=== PATIENT | female | born 1980 | race Caucasian/White ===

== ENCOUNTER 2017-03-11 10:53 | Emergency (ER) | payer OTHER ==
[2017-03-11 11:19] VITALS: BP 109/64
[2017-03-11] MEDS ORDERED: Fluorescein Sodium TOPICAL* 1 MG TEST OPHTHALMIC ONE (12:00)
[2017-03-11] MEDS ORDERED: Tetracaine 0.5% OPTH.SOL 4 ML* 1 DROP BTL ONE (12:00)
[2017-03-11] MEDS ORDERED: Erythromycin OPTH OINT* APPLIC OINT RIGHT EYE ONE ×2 (12:29→12:30)
--- NOTE | 2017-03-11 12:30 | UC ---
rafat Zuleta Timothy, scribed for Uma Campbell MD on 03/11/17 at 1215 . Eye Complaint HPI - HPI Summary HPI Summary: Analisa Cagle is a 37 yo female presenting to [facility] accompanied by her with 8/10 burning, throbbing, aching right eye pain which she scratched this am by rubbing it. Pain increases with blinking. + clear discharge. No blurring or vision. + photophobia. No corrective lenses. . She notes that with pain she felt slightly lightheaded, which has resolved. No fb sesation. Pt is 9.5 weeks . Her MHx includes current , anemia, breast CA 2011. Pt medication list reviewed this visit. - History of Current Complaint Chief Complaint: UCEye Stated Complaint: EYE ISSUE Time Seen by Provider: 03/11/17 12:00 Hx Obtained From: Patient Hx Last Menstrual Period: 9.5 weeks ?: Yes Onset/Duration: Sudden Onset, Lasting Hours, Still Present Timing: Constant Severity Initially: Moderate Severity Currently: Moderate Pain Intensity: 8 Pain Scale Used: 0-10 Numeric Location of Injury: Conjunctiva Character: Sharp, Dull, Throbbing Aggravating Factor(s): Light, Blinking Associated Signs And Symptoms: Positive: Photophobia - Allergies/Home Medications Allergies/Adverse Reactions: Allergies Allergy/AdvReac Type Severity Reaction Status Date / Time Codeine Allergy N/V, Verified 09/02/16 14:58 TINGLING EXTREMITIES PMH/Surg Hx/FS Hx/Imm Hx Previously Healthy: Yes Cancer History: Breast Cancer - 2011 - Surgical History Surgical History: Yes Surgery Procedure, Year, and Place: sinus surg. 2007,BILATERAL MASTECTOMY,2015 UTERINE FIBROID REMOVAL - Family History Known Family History: Positive: Diabetes, Other - glaucoma - Social History Occupation: Employed Full-time Lives: With Family Alcohol Use: Occasionally Substance Use Type: None Smoking Status (MU): Never Smoked Tobacco Review of Systems Constitutional: Negative Skin: Negative Eyes: Drainage - clear tearing, Photophobia, Other - eye pain ENT: Negative Respiratory: Negative Cardiovascular: Negative Gastrointestinal: Negative Genitourinary: Negative Motor: Negative Neurovascular: Negative Musculoskeletal: Negative Neurological: Negative Psychological: Negative All Other Systems Reviewed And Are Negative: Yes Physical Exam Triage Information Reviewed: Yes Vital Signs: Initial Vital Signs Temp 97.6 F 03/11/17 11:15 Pulse 65 03/11/17 11:15 Resp 15 03/11/17 11:15 BP 109/64 03/11/17 11:15 Pulse Ox 100 03/11/17 11:15 Vital Signs Reviewed: Yes Eyes: Positive: Conjunctiva Inflamed, Discharge - clear tearing, Other: - Pain improved with tetracaine instilled RADHA, EOM intact mild photophobia no fb in everted upper and lower lid fluorescene - pt with uptake left eye at 7 o;clock small corneal abrasion Dental Exam: Normal Neck exam: Normal Neck: Positive: Supple, Nontender Respiratory Exam: Normal Respiratory: Positive: Chest non-tender, Lungs clear, Normal breath sounds, No respiratory distress, No accessory muscle use Cardiovascular: Positive: RRR, No Murmur, Pulses Normal Abdominal Exam: Normal Abdomen Description: Positive: Nontender, No Organomegaly, Soft Re-Evaluation - Re-Evaluation First Eval Re-Evaluation Time: 12:23 Change: Unchanged Comment: Reviewed of med safe in - will avoid Acular, polytrim and cipro. will use emycin ointment. will give first dose here because pt unsure regarding ointment. referral to ophto. return prn Eye Complaint Course/Dx - Course Course Of Treatment: Analisa Cagle is a 37 yo female presenting to [facility] with 8/ 10 burning, throbbing, aching right eye pain S/P rubbing it this morning, concerned for a scratch. She is 9.5 weeks . Pt medication list reviewed this visit. In the urgent care course she received tetracaine. Discussed risks of motrin drops with . After clinical examination she will be discharged home with appropriate instructions and follow up. - Differential Dx/Diagnosis Differential Diagnosis/HQI/PQRI: Corneal Abrasion Provider Diagnoses: corneal abrasion Discharge - Discharge Plan Condition: Stable Disposition: HOME Patient Education Materials: Corneal Abrasion (ED) Referrals: Rayshawn Elder MD [Primary Care Provider] - 2 Days Nasim Heath MD [Medical Doctor] - 2 Days Additional Instructions: - wear sunglasses - this will help with light sensitivity - Okay to take Tylenol every 6 hours for pain - Okay to apply cool cloth or pack to your eye for discomfort - Apply eye ointment 3 times a day fir a period of 5 days - Contact the eye doctor to schedule a follow-up appointment if your symptoms persist, increase, or you have any other questions or concerns The documentation as recorded by the rafat ferreira Timothy accurately reflects the service I personally performed and the decisions made by me, Uma Campbell MD.
== END 2017-03-11 12:49 | disposition home or self-care (01) ==
LOC: UCEAST 10:53
DX: O26.891 Other specified pregnancy related conditions, first trimester (principal); S05.01XA Injury of conjunctiva and corneal abrasion without foreign body, right eye, initial encounter; Z3A.09 9 weeks gestation of pregnancy; X58.XXXA Exposure to other specified factors, initial encounter; Y93.9 Activity, unspecified; Y92.9 Unspecified place or not applicable; Z85.3 Personal history of malignant neoplasm of breast; Z90.13 Acquired absence of bilateral breasts and nipples; Z88.5 Allergy status to narcotic agent
CPT/HCPCS: 99212; A9270-GY; G0463

== ENCOUNTER 2017-09-25 06:07 | Inpatient (IN) | payer OTHER ==
[~2017-09-25 06:07] MED LIST: Buffered Lidocaine 0.9% SYRIN* 5 ML/SYR SYRINGE INTRADERM ONE; Metoclopramide IV* 5 MG/ML 2 ML VIAL IV SLOW PU ONE; Ondansetron INJ* 2 MG/ML VIAL IV ONE; Sodium Citrate/Citric Acid* 15 ML UDC PO ONE
--- OUTSIDE RECORDS SUMMARY | 2017-09-25 06:12 | XMS REPORT ---
:1980 External Reference #:[id number] Author Organization [facility] Address [address] [place] [address] Phone [phone] Care Team Providers Name Role Phone All Elder MD Primary Care Physician Unavailable Payers Type Date Identification Numbers Payment Provider Subscriber Commercial Effective: Policy Number: [facility] Cisco Gonzalez 2012 [id number] (alpha) Group Number: [id number] [address] PayID: [id number] [place] [address] Problems Date Description Provider Status Onset: 08/03/2013 Uterine leiomyoma TOBI Snyder Active Family History Date Family Member(s) Problem(s) Comments Father Diabetes Mother A&W Siblings 1 Siblings Youngest of two children First Sister A&W Paternal Grandfather due to Cancer () Paternal Grandmother due to Breast Cancer () Maternal Grandfather due to Cancer () Maternal Grandmother due to Ovarian Cancer () Social History Type Date Description Comments Education Highest Level Completed, Master's Degree Marital Status Lives With Spouse Sleep Typically sleeps 6 hours a night Pets 1 dog Occupation Teacher Cigarette Use Never Smoked Cigarettes ETOH Use Alcohol Use Prior To approx 2-3xwk Recreational Drug Use Denies Drug Use Smoking Patient has never smoked Daily Caffeine Consumes on average 1 cup of coffee per day Exercise Type/Frequency Exercises regularly Seat Belt/Car Seat Always uses seat belt Currently Active Patient is currently sexually active Contraceptive Methods None STD's Genital Warts Allergies, Adverse Reactions, Alerts Date Description Reaction Status Severity Comments 03/10/2017 Codeine Nausea and Vomiting, numbness active 03/10/2017 Paba Derivatives active 07/12/2013 NKDA inactive Medications Medication Date Status Form Strength Qnty SIG Indications Ordering Provider Flonase Active Unknown 000 Active Unknown Vitamins 000 Calcium 1000 + Active Unknown D 000 Ferrous Active Unknown Gluconate 000 Flagyl Hx Tablets 500mg 14tabs 1 by mouth Sandra 017 - twice a day Jump, x7 DO Not ANP-C 017 Start This Medication until March 28. Tamoxifen Hx Unknown Citrate 000 - 017 Xyzal Hx Unknown 000 - 017 Glucosamine Hx Unknown 000 - 017 Medications Administered in Office Medication Date Status Form Strength Qnty SIG Indications Ordering Provider PT SCRN Tbco Administered Injection Atiya Id as Non User 018 MD Elijah Immunizations CPT Code Status Date Vaccine Lot # [id number] Given 05/14/2017 Influenza Vaccine Quadrivalent Preser/Antibiotic [id number] Free Im Use Vital Signs Date Vital Result Comment 09/16/2017 BP Systolic 112 mmHg BP Diastolic 72 mmHg Height 65 inches 5'5" Weight 183.00 lb BMI (Body Mass Index) 30.4 kg/m2 Last Menstrual Period [id number] 1 Parity 0 03/10/2017 BP Systolic 120 mmHg BP Diastolic 72 mmHg Height 65 inches 5'5" Weight 162.00 lb BMI (Body Mass Index) 27.0 kg/m2 Last Menstrual Period 0741852 1 Parity 0 07/12/2013 BP Systolic 110 mmHg BP Diastolic 74 mmHg Height 65.25 inches 5'5.25" Weight 148.00 lb BMI (Body Mass Index) 24.4 kg/m2 Last Menstrual Period [id number] 0 Results Test Date Test Result H/L Range Note Laboratory test 09/07/2017 Genital For GRP B SEE RESULT BELOW 1 finding Strep Only Laboratory test 07/02/2017 Glucose 1 HR Post 117 mg/dL 70-160 2 finding Prandial CBC With No Diff 07/02/2017 White Blood Count 7.3 10^3/uL 3.5-10.8 Red Blood Count 3.87 10^6/uL Low 4.0-5.4 Hemoglobin 11.6 g/dL Low 12.0-16.0 Hematocrit 34 % Low 35-47 Mean Corpuscular Volume 88 fL 80-97 Mean Corpuscular Hemoglobin 30 pg 27-31 Mean Corpuscular HGB Conc 34 g/dL 31-36 Red Cell Distribution Width 15 % 10.5-15 Platelet Count 179 10^3/uL 150-450 Mean Platelet Volume 10 um3 7.4-10.4 Maternal Serum Afp 04/14/2017 YUMIKO Interpretation SEE NOTE 3 Risk For NTD (Osb) 1:4500 Afp,Serum 37.0 NG/ML Adjusted Mom 1.32 4 Comment SEE NOTE 5 Date Of 1980 MERISSA 10/04/2017 MERISSA Determined By ULTRASOUND Gestational Age 15.3 WEEKS Weight 162 LBS Race =W Insulin Dependent Diabetic NO Repeat Sample NO Number Of Fetuses 1 History Of NTD NO Date Of Draw 04/14/2017 Measuring Machine Tender SEE NOTE 6 Lead 03/17/2017 Lead <1.0 g/dL 0.0-4.9 7 HIV 1/2 AB Evaluation 03/17/2017 HIV 1 2 Antibody Nonreactive Nonreactive 8 Type And Screen 03/17/2017 Patient Blood Type O Positive Antibody Screen NEGATIVE CBC With No Diff 03/17/2017 White Blood Count 4.8 10^3/uL 3.5-10.8 Red Blood Count 4.70 10^6/uL 4.0-5.4 Hemoglobin 13.5 g/dL 12.0-16.0 Hematocrit 41 % 35-47 Mean Corpuscular Volume 87 fL 80-97 Mean Corpuscular Hemoglobin 29 pg 27-31 Mean Corpuscular HGB Conc 33 g/dL 31-36 Red Cell Distribution Width 15 % 10.5-15 Platelet Count 168 10^3/uL 150-450 Mean Platelet Volume 10 um3 7.4-10.4 PNL No Urine 03/17/2017 Rubella Screen Immune IU/mL Immune 9 Hemoglobin A1c 5.3 % Less than 6.0 10 Hepatitis B Surface Ag Nonreactive Nonreactive 11 Syphillis Igg W/Reflex RPR Nonreactive Nonreactive 12 Spinal Muscular Atrophy Panel 03/17/2017 spinal muscular atrophy Negative 13 PDF Report SEE IMAGE SCR+Sex Chrom Analysis 03/17/2017 Chromosome 13 Aneuploidy Negative 14 Inform Chromosome 18 Aneuploidy Negative 15 Chromosome 21 Aneuploidy Negative 16 Sex Chromosome Analysis Female 17 PDF Report SEE IMAGE Laboratory test 03/10/2017 Cytology SEE RESULT BELOW 18 finding GC/Chlamydia Dna 03/10/2017 Chlamydia trachomatis Negative Negative Probe Rna Neisseria gonorrhoeae (GC) Rna Negative Negative Laboratory test 03/10/2017 Human Papilloma Negative Negative 19 finding Virus Rna Urine Culture And 03/10/2017 Urine Culture SEE RESULT BELOW needs flagyl 20 Sensitivities 1 SEE RESULT BELOW Name: CISCO GONZALEZ : [address]: Atiya Nava MD Acct: [id number] Unit: [id number] AGE: 37 Location: [facility] Re09/07/17 SEX: F Status: REG REF SPEC: [id number] AFTAB: 09/07/17-[address] [facility] [address]: Atiya Nava MD REQ: [id number] RECD: 09/07/17 STATUS: COMP _ SOURCE: CER/VAG/RE SPDESC: ORDERED: Grp B Strp Scrn COMMENTS: [id number] QUERIES: Is Patient Penicillin Allergic? N Is patient penicillin allergic and/or sensitivities needed? N Provider Requisition # C77#[id number]_ Procedure Result Reported Site Group B Strep Culture Screen Final 09/09/17- 1115 ML Group B Strep Screen Positive Organism 1 STREP GROUP B Susceptibility testing of penicillins and other B-lactams approved by FDA for treatment of Streptococcus pyogenes (Group A Strep) and Streptococcus agalactiae (Group B Strep) is not necessary for clinical purposes and need not be done routinely, since as with vancomycin, resistant strains have not been recognized. (CLSI D912-J73;p.66) Positive isolates will be saved for one week. Please call the Microbiology Laboratory if further susceptibility testing is needed. * ML - [facility] ([facility]) . END OF REPORT * ML=Testing performed at Main Lab DEPARTMENT OF PATHOLOGY, [address] [place] [address] Mateo Newell M.D. Director [facility] # [id number] 2 [id number] SCREEN NEGATIVE FOR OPEN NTD. 4 ADJUSTED AFP MOM INTERPRETIVE CUTOFFS: <2.50 ADJUSTED MOM <1.90 ADJUSTED MOM FOR INSULIN-DEPENDENT DIABETES <4.00 ADJUSTED MOM FOR TWINS <3.50 ADJUSTED MOM FOR TWINS INSULIN-DEPENDENT DIABETES <4.50 ADJUSTED MOM FOR TRIPLETS <4.00 ADJUSTED MOM FOR TRIPLETS INSULIN-DEPENDENT DIABETES 5 THE AFP TEST RESULT INDICATES THAT THIS PATIENT IS SCREEN NEGATIVE FOR OPEN NTD. IT SHOULD BE NOTED THAT NORMAL TEST RESULTS CAN NEVER GUARANTEE THE OF A NORMAL BABY AND THAT 2-3% OF [place] HAVE SOME TYPE OF PHYSICAL OR MENTAL DEFECT, MANY OF WHICH ARE UNDETECTABLE THROUGH ANY KNOWN DIAGNOSTIC TECHNIQUE. THE SINGLE AFP MARKER IS NOT RECOMMENDED FOR DOWN SYNDROME AND OTHER CHROMOSOMAL ABNORMALITIES SCREENING. MUCH GREATER SENSITIVITY IS ACHIEVED WITH MULTIPLE MARKERS, SUCH AFP, HCG, UNCONJUGATED ESTRIOL, AND/OR DIMERIC INHIBIN A. WHILE WOMEN 35 YEARS OR OLDER AT THE TIME OF DELIVERY HAVE THE HIGHEST RISK OF HAVING A CHILD WITH DOWN SYNDROME, CURRENT [place] [employer] OF OBSTETRICS AND GYNECOLOGY GUIDELINES (CONTENT ADMINISTRATOR 2007 V109 [id number] RECOMMEND THAT "MATERNAL AGE ALONE NO LONGER BE USED A CUT-OFF TO DETERMINE WHO IS OFFERED SCREENING VERSUS WHO IS OFFERED INVASIVE TESTING." GENETIC COUNCELING MAY BE CONSIDERED. THIS IS A SCREENING TEST, NOT A DIAGNOSTIC TEST. THIS RISK ASSESSMENT REPORT IS BASED IN PART ON DEMOGRAPHIC DATA PROVIDED BY THE ORDERING PHYSICIAN. PLEASE NOTIFY THE LAB PROMPTLY IF ANY DATA IS INCORRECT. FOR ASSISTANCE WITH RECALCULATIONS, PLEASE CALL YOUR LOCAL [facility] AT . FOR ASSISTANCE WITH INTERPRETATION OF THESE RESULTS, PLEASE CALL [phone] --- Reviewed by: Leo Davison MD 7 ADDITIONAL INFORMATION Testing performed by Inductively Coupled Plasma-Mass Spectrometry (ICP-MS). This test was developed and its performance characteristics determined by [facility] in a manner consistent with CLIA requirements. This test has not been cleared or approved by the U.S. Food and Drug Administration. 8 It is recognized that currently available assays for the detection of antibodies to HIV-1 and/or HIV-2 may not detect all infected individuals. HIV antibodies may be undetectable in some stages of the infection and in some clinical conditions. The performance of this assay has not been established for populations of infants or children. Assayed by Chemiluminescence Microparticle Immunoassay on the Siemens Advia Centaur CP. Values obtained with different methods or kits cannot be used interchangeably.The diagnostic specificity of the ADVIA Centaur 1/O/2 Enhanced assay in the low risk population was 99.90% (6052/6058) with a 95% confidence interval of 99.78 to 99.96%. 9 [id number] 10 Therapeutic target for the treatment of diabetes Mellitus patients is <7% HBA1C, and in selective patients <6.0%.Please refer to [place] [employer] Association Diabetic care guidelines for further information. 11 [id number] 12 Warning: A positive result is not useful for establishing a diagnosis of syphilis. In most situations, such a result may reflect a prior treated infection; a negative result can exclude a diagnosis of syphilis except for incubating or early primary disease. 13 Negative result: Negative for g.99391H>G SNP and SMN1: 2 copies. 14 No aneuploidy detected. 15 No aneuploidy detected. 16 No aneuploidy detected. 17 Female: No aneuploidy detected. 18 SEE RESULT BELOW Name: CISCO GONZALEZ : [address]: Sandra Algeria Acct: [id number] Unit: [id number] AGE: 37 Location: [facility] Re03/10/17 SEX: F Status: REG REF SPEC: [id number] AFTAB: 03/10/17-[address]: Sandra TORRE C REQ: [id number] RECD: 03/10/17 STATUS: SOUT _ ORDERED: TP IMAGE ANAL, HPV/Thin Prep COMMENTS: [id number] FINAL DIAGNOSIS Negative for Intraepithelial lesion or Malignancy A. Ectocervical/Endocervical Specimen Adequacy: Satisfactory of evaluation Transformation zone component identified Patient Information: HPV: High risk HPV RNA testing regardless of pap results. Actual Specimen Date: 03/10/17 Last Menstrual Date: 01/01/17 Spec Date if unknown: unknown ?: Y Post Menopausal?: N Hysterectomy?: N Date Time Test Result Flag (u) Normal Range 03/10/17 1439 HPV RNA Negative Negative The high-risk HPV types detected by the assay include: 16, 18, 31, 33, 35, 39, 45, 51, 52, 56, 58, 59, 66, and 68. Signed (signature on file) LILIANE Kearney (ASC) 03/11 1428 This Pap test was evaluated with the assistance of the ThinPrep Test Imaging System. Due to cytologic findings at the stoner out microscope, comprehensive manual rescreening by a Exercise Instructor may be required. The Pap Smear is a screening test designed to aid in the detection of premalignant and malignant conditions of the uterine cervix. It is not a diagnostic procedure and should not be used as the sole means of detecting cervical cancer. Both false- positive and false- negative reports do occur. Depending on your risk status, a Pap smear should be obtained and evaluated every 1-3 years. END OF REPORT * ML=Testing performed at [facility] DEPARTMENT OF PATHOLOGY, [address] [place] [address] Mateo Newell M.D. Director [facility] # [id number] 19 The high-risk HPV types detected by the assay include: 16, 18, 31, 33, 35, 39, 45, 51, 52, 56, 58, 59, 66, and 68. 20 SEE RESULT BELOW Name: CISCO GONZALEZ : [address]: Sandra Alegria Acct: [id number] Unit: [id number] AGE: 37 Location: [facility] Re03/10/17 SEX: F Status: REG REF SPEC: [id number] AFTAB: 03/10/17-[address]: Sandra Alegria REQ: [id number] RECD: 03/10/17 STATUS: COMP _ SOURCE: URINE SPDESC: ORDERED: Urine Culture COMMENTS: [id number] Procedure Result Reported Site Urine Culture Final 03/13/17- 1039 ML Organism 1 LEIGH VAGINALIS-PRESUMPTIVE [place] Count 50-75,000 (Many) CFU/ML Gardnerella vaginalis can play a role in extravaginal infections to include the urinary tract. Treatment of choice for local infections is metrondiazole. (Manual of Clinical Microbiology, p.508; Que's Color [place] and Textbook of Diagnostic Microbiology, p. 836) * ML - MAIN LAB ([facility]) . END OF REPORT * ML=Testing performed at Main Lab DEPARTMENT OF PATHOLOGY, [address] [place] [address] Mateo Newell M.D. Director [facility] # [id number] Procedures Date CPT Code Description Status 09/07/2017 43917 Echography Uterus Limited Completed 07/24/2017 29664 Echography Uterus Follow-Up Or Repeat Completed 05/20/2017 71717 Echography Uterus Complete Completed 03/10/2017 41609 OB Ultrasound First Trimester Completed 07/17/2012 Mammogram Completed Encounters Type Date Location Provider CPT E/M Dx Office Visit 09/16/2017 3:30p [facility] [place] [address] O09.513 Z01.818 Office Visit 07/12/2013 8:00a [facility] [place] [address] 620.0 218.9 V07.51 Plan of Care Future Appointment(s):10/23/2017 1:30 pm - Atiya Nava MD at [facility] [id number]/02/2017 1:20 pm - Dilan Patton CNM at [facility]09/25/2017 7:45 am - Edin Forde MD at [place] 7381309/25/2017 7:45 am - Atiya Nava MD at [facility] Heubsf8409/16/2017 - Atiya Nava MDO09.513 Supervision of elderly primigravida, third trimesterComments:routine care zaid.Z01.818 Encounter for other preprocedural examinationComments:Reviewed with patient risks benefits of primary section to include but not limited to infection, bleeding ,damage to internal organs,pain, scarring ,need for blood production, possible risk ofhysterectomy. Consent form reviewed and signed together. All questions answered.
[2017-09-25] MEDS ORDERED: ceFOXitin 2 GM IVPREMIX* 2 GM/50 ML BAG IVPB ONE (07:00)
[2017-09-25] MEDS ORDERED: Ondansetron INJ* 2 MG/ML VIAL IV PRN (07:03)
[2017-09-25] MEDS ORDERED: Nalbuphine* 20 MG/ML 1 ML VIAL IV PRN (07:03)
[2017-09-25] MEDS ORDERED: HYDROmorphone INJ* 1 MG/ML CARPUJECT SYRINGE IV PRN (07:03)
[2017-09-25] MEDS ORDERED: Acetaminophen IV 1GM/100ML * 1,000 MG/100 ML VIAL IVPB ONE (07:03)
[2017-09-25] MEDS ORDERED: Naloxone* 0.4 MG/ML 1 ML VIAL IV PRN (07:03)
[2017-09-25] MEDS ORDERED: Scopolamine 1.5 mg* PATCH TRANSDERM PRN (07:03)
[2017-09-25] MEDS ORDERED: PROCHLORPERAZINE INJ 5 MG/ML 2 ML VIAL IV PRN (07:03)
[2017-09-25] MEDS ORDERED: fentaNYL* 50 MCG/ML 2 ML VIAL (100 MCG VIAL) IV PRN (07:03)
[2017-09-25 07:20] LABS: Hematocrit 37 % (35-47); Hemoglobin 12.5 g/dl (12.0-16.0); Mean Corpuscular HGB Conc 34 g/dl (31-36); Mean Corpuscular Hemoglobin 28 pg (27-31); Mean Corpuscular Volume 84 fL (80-97); Mean Platelet Volume 10 um3 (7.4-10.4); Platelet Count 147 10^3/ul (150-450); Red Blood Count 4.42 10^6/ul (4.0-5.4); Red Cell Distribution Width 15 % (10.5-15); White Blood Count 6.3 10^3/ul (3.5-10.8)
[2017-09-25] MEDS ORDERED: fentaNYL* 50 MCG/ML 2 ML VIAL (100 MCG VIAL) ONE (07:23)
[2017-09-25] MEDS ORDERED: Scopolamine 1.5 mg* PATCH ONE (07:29)
[2017-09-25] MEDS ORDERED: Sterile Water for Inj* 10 ML ONE ×2 (07:30)
[2017-09-25] MEDS ORDERED: EPHEDrine (Pressors)* 50 MG/ML VIAL ONE (07:30)
[2017-09-25] MEDS ORDERED: OXYTOCIN* 10 UNITS/ML 1 ML VIAL ONE (07:31)
[2017-09-25] MEDS ORDERED: Oxytocin in LR* 20 UNITS/1,000 ML BAG IVPB SCH (08:00)
[2017-09-25] MEDS ORDERED: Acetaminophen TAB* 325 MG PO PRN (08:00)
[2017-09-25] MEDS ORDERED: Glycerin ADULT SUPP PR PRN (08:00)
[2017-09-25] MEDS ORDERED: Dibucaine 1% 28.35 GM TUBE PR PRN (08:00)
[2017-09-25] MEDS ORDERED: Witch Hazel PAD* JAR TOPICAL PRN (08:00)
[2017-09-25 08:03] LABS: ABS Basophils 0 10^3/ul (0-0.2); ABS Eosinophils 0 10^3/ul (0-0.6); ABS Lymphocytes 1.3 10^3/ul (1.0-4.8); ABS Monocytes 0.5 10^3/ul (0-0.8); ABS Neutrophils 4.4 10^3/ul (1.5-7.7); ABS Nucleated RBC 0 10^3/ul; Eosinophil % 0.7 % (0-6); Lymphocyte % 20.8 % (25-47); Nucleated Red Blood Cells % 0.3
[2017-09-25] MEDS ORDERED: Phenylephrine IV* 40 MCG/ML 10 ML SYRINGE ONE (08:38)
[2017-09-25] MEDS ORDERED: Ketorolac INJ* 30 MG/ML 1 ML VIAL IV PRN (09:30)
[2017-09-25] MEDS: Simethicone TAB* 80 MG TAB.CHEW PO SCH ×4 (14:10→21:22)
[2017-09-25] MEDS: Docusate CAP* 100 MG PO SCH ×3 (14:10→21:22)
[2017-09-25] MEDS: oxyCODONE/Acetamin 5/325 MG* TAB PO PRN ×2 (14:10→18:20)
[2017-09-25] MEDS: Ibuprofen TAB* 600 MG PO PRN (16:44)
[2017-09-25] MEDS: Enoxaparin(*) 40 MG/0.4 ML SYR SUBCUT SCH (21:22)
[2017-09-26] MEDS: oxyCODONE/Acetamin 5/325 MG* TAB PO PRN ×6 (00:08→22:05)
[2017-09-26] MEDS: Ibuprofen TAB* 600 MG PO PRN ×4 (00:08→18:16)
[2017-09-26 06:41] LABS: ABS Basophils 0 10^3/ul (0-0.2); ABS Eosinophils 0 10^3/ul (0-0.6); ABS Lymphocytes 1.2 10^3/ul (1.0-4.8); ABS Monocytes 0.4 10^3/ul (0-0.8); ABS Nucleated RBC 0 10^3/ul; Eosinophil % 0.6 % (0-6); Hematocrit 31 % (35-47); Hemoglobin 10.3 g/dl (12.0-16.0); Lymphocyte % 13.3 % (25-47); Mean Corpuscular HGB Conc 33 g/dl (31-36); Mean Corpuscular Hemoglobin 28 pg (27-31); Mean Corpuscular Volume 85 fL (80-97); Mean Platelet Volume 10 um3 (7.4-10.4); Nucleated Red Blood Cells % 0.1; Platelet Count 116 10^3/ul (150-450); Red Blood Count 3.63 10^6/ul (4.0-5.4); Red Cell Distribution Width 15 % (10.5-15); White Blood Count 8.7 10^3/ul (3.5-10.8)
[2017-09-26] MEDS: Simethicone TAB* 80 MG TAB.CHEW PO SCH ×3 (08:59→20:57)
[2017-09-26] MEDS ORDERED: Ferrous Gluconate TAB* 324 MG TAB PO SCH (09:00)
[2017-09-26] MEDS: Docusate CAP* 100 MG PO SCH ×3 (09:00→20:57)
--- NOTE | 2017-09-26 19:28 | OP ---
OPERATIVE REPORT: DATE OF OPERATION: 09/25/17 DATE OF : [birth year] SURGEON: Atiya Nava MD UNDERCUTTER OPERATOR: Edin Forde MD ANESTHESIOLOGIST: Uma Theodore MD ANESTHESIA: Spinal. PRE-OP DIAGNOSES: Intrauterine at 38-5/7 weeks, prior myomectomy. POST-OP DIAGNOSES: Intrauterine at 38-5/7 weeks, prior myomectomy, delivered. OPERATIVE PROCEDURE: Primary low transverse section with vacuum delivery. ESTIMATED BLOOD LOSS: 1000 cc. FLUIDS: 2000 cc of crystalloid. URINE OUTPUT: 100 cc of clear yellow urine. FINDINGS: Revealed a vertex female infant, Apgars 9 at 1 minute and 9 at 5 minutes, weight was 7 pounds. Nuchal cord x1. No meconium. Normally palpated tubes and ovaries bilaterally, densely adherent placenta to the right lateral and fundal area. No evidence of accreta. Placenta was manually extracted, 3- vessel cord and intact. Uterine cavity was noted to be free of any placental tissue or placental membranes. COMPLICATIONS: None apparent. DISPOSITION: Stable to recovery room. DESCRIPTION OF PROCEDURE: The patient was placed in dorsal lithotomy position. The abdomen was prepped and draped in a sterile standard fashion. The patient was identified with universal protocol. Anesthesia was tested to appropriate level. An incision was made through prior incisional site with excision of keloid. This incision was then carried down to the fascia. Fascia was scored in the midline with scalpel and then extended laterally and superiorly using Hanley scissors. Fascia was bluntly and sharply from rectus muscle and then the peritoneum was then entered bluntly. The fascial incision was extended superiorly and inferiorly while directly visualizing the bowel and bladder. The bladder blade was inserted. Lower uterine segment was identified , tented up with an Allis. An incision was made with a scalpel where multiple large venous complexes noted in the lower uterine segment. The amniotomy was created after extension of the hysterotomy incision with bandage scissors. Amniotomy was created to clear the fluid and attempt was made at delivery. A vacuum was then applied on the head and the head was delivered with the use of vacuum. Nuchal cord reduced. Anterior, then posterior shoulder delivered. Cord was doubly clamped, and after allowing the cord to pulse, the infant was then handed off to awaiting driller helper. The attempt was made to exteriorize the uterus; however, the uterus was noted to be very large and unable to deliver through the incision. The uterine cavity was then explored with moist laparotomy sponge and noted to be free of any placental tissue or membranes. Please note that with delivery of the placenta, there was dense adhesion to prior myomectomy site. There was no evidence of a placenta percreta. The placenta was noted to be intact and had 3-vessel cord. Once uterine cavity was explored, noted to be free of any membranes or placental tissue, hysterotomy site was reapproximated in 2 layers, first layer running locked 0 Vicryl, second layer was running 0 Vicryl imbricated. The copious lavage was then performed and tubes and ovaries were palpated and noted to have a normal palpation. There was no evidence of adhesions behind the uterus. After copious lavage, hysterotomy site was confirmed to be hemostatic. The peritoneum was then reapproximated using 3-0 Vicryl in a running fashion. The prefascial area was visualized and noted to be hemostatic and the fascia itself was then reapproximated using 0 Vicryl x2 in a running fashion. Subcu, Camper' s fascia was then reapproximated using interrupted 0 Vicryl and the skin was then reapproximated using 4-0 Monocryl in a subcuticular fashion. Mastisol and Steri's were placed. All sponge, instrument, and blade counts were correct throughout the case. The patient tolerated the procedure well and went to recovery room in stable condition. [id number]/[facility] #: [id number] LINDA
[2017-09-26] MEDS: Enoxaparin(*) 40 MG/0.4 ML SYR SUBCUT SCH (20:57)
[2017-09-27] MEDS: Ibuprofen TAB* 600 MG PO PRN ×2 (00:21→07:18)
[2017-09-27] MEDS: oxyCODONE/Acetamin 5/325 MG* TAB PO PRN (02:02)
[2017-09-27] MEDS: Simethicone TAB* 80 MG TAB.CHEW PO SCH ×2 (08:49→08:50)
[2017-09-27] MEDS: Docusate CAP* 100 MG PO SCH (08:49)
[2017-09-27 08:52] VITALS: BP 125/80
[2017-09-28] MEDS ORDERED: Scopolamine PATCH Remove* 1 NOTE MISC PATCH OFF ONE (07:03)
== END 2017-09-27 12:00 | disposition home or self-care (01) | DRG 540 ==
LOC: MCHOB 06:07
PROVIDERS: ADMIT Obstetrics & Gynecology; ATTEND Obstetrics & Gynecology
PROC: 10D17Z9 Manual Extraction of Products of Conception, Retained, Via Natural or Artificial Opening (ICD-10-PCS; 2017-09-25)
PROC: 4A1HX4Z Monitoring of Products of Conception, Cardiac Electrical Activity, External Approach (ICD-10-PCS; 2017-09-25)
PROC: 10D00Z1 Extraction of Products of Conception, Low, Open Approach (ICD-10-PCS; principal; 2017-09-25 07:45)
DX: O34.211 Maternal care for low transverse scar from previous cesarean delivery (principal); N85.8 Other specified noninflammatory disorders of uterus; O69.81X0 Labor and delivery complicated by cord around neck, without compression, not applicable or unspecified; O99.824 Streptococcus B carrier state complicating childbirth; O73.0 Retained placenta without hemorrhage; Z3A.38 38 weeks gestation of pregnancy; Z37.0 Single live birth; Z85.3 Personal history of malignant neoplasm of breast; Z90.13 Acquired absence of bilateral breasts and nipples; Z88.5 Allergy status to narcotic agent; Z85.42 Personal history of malignant neoplasm of other parts of uterus; O66.5 Attempted application of vacuum extractor and forceps
CPT/HCPCS: 36415; 85025; A9270-GY; J0694; J1650; J1885; J2405; J2590; J2765; J3010